=== PATIENT | male | born 1955 | race Caucasian/White ===

== ENCOUNTER 2017-11-23 23:47 | Emergency (ER) | payer OTHER ==
[~2017-11-23] VITALS: Ht 172.7 cm; Wt 80.7 kg
[2017-11-23 23:47] VITALS: BP 168/98
--- NOTE | 2017-11-23 23:47 | NUR ---
PT BIB BLS TO ER BED 7.
--- NOTE | 2017-11-23 23:47 | NUR ---
PT BIB EMS WITH BILAT ARMPIT INTERMITTENT PAIN RADIATING DOWN RIBS WITH 9/10 PAIN X2 HRS. PT STATES SOB WHEN PAIN IS AT ITS WORST. A&OX4. LUNGS CLEAR BILAT. VSS UPON ARRIVAL TO ER. POSITIONED IN BED WITH HOB ELEVATED. SIDE RAILS UP. ER MD AWARE. CONTINUE TO MONITOR.
[2017-11-24] MEDS ORDERED: KETOROLAC 60 MG/2 ML VIAL IM ONE (00:05)
[2017-11-24 01:28] VITALS: BP 145/86
== END 2017-11-24 01:28 | disposition home or self-care (01) ==
LOC: MED 23:47
DX: M79.601 Pain in right arm (principal); M79.602 Pain in left arm; F17.200 Nicotine dependence, unspecified, uncomplicated; Z85.818 Personal history of malignant neoplasm of other sites of lip, oral cavity, and pharynx
CPT/HCPCS: 96372; 99283; J1885